=== PATIENT | female | born 1995 | race American Indian/Alaskan Native ===

== ENCOUNTER 2019-10-25 17:58 | Emergency (ER) | payer OTHER ==
[2019-10-25] MEDS ORDERED: IBUPROFEN 600 MG TAB PO ONE (19:58)
--- NOTE | 2019-10-25 19:58 | Emergency Department Report ---
Blank Doc - Documentation Documentation: 24-year-old female that presents with body aches, fever, cough, and CP with co ugh. This initial assessment/diagnostic orders/clinical plan/treatment(s) is/are subject to change based on patient's health status, clinical progression and re- assessment by fellow clinical providers in the ED. Further treatment and workup at subsequent clinical providers discretion. Patient/guardians urged not to elope from the ED as their condition may be serious if not clinically assessed a nd managed. Initial orders include: 1- Patient sent to [facility] for further evaluation and treatment 2- CXR 3- motrin-RN to repeat vitals 4- flu swab
--- NOTE | 2019-10-25 20:47 | XRay Report ---
CHEST 2 VIEWS INDICATION / CLINICAL INFORMATION: cough. COMPARISON: None available. FINDINGS: SUPPORT DEVICES: None. HEART / MEDIASTINUM: No significant abnormality. LUNGS / PLEURA: No significant pulmonary or pleural abnormality. No pneumothorax. ADDITIONAL FINDINGS: No significant additional findings. IMPRESSION: No significant abnormality. Signer Name: Musa Faustin MD FACR Signed: 10/25/2019 8:43 PM Workstation Name: [email or web address]
[2019-10-25 22:39] VITALS: BP 108/68
[2019-10-25] MEDS ORDERED: methylPREDNISolone Sod Succinate 125 MG/2 ML INJ IM ONE (23:26)
[2019-10-25] MEDS ORDERED: IPRATROPIUM/ALBUTEROL SULFATE 3 ML AMPUL.NEB IH ONE (23:26)
--- NOTE | 2019-10-26 00:35 | Emergency Department Report ---
- General Chief Complaint: Upper Respiratory Infection Stated Complaint: CHEST PAIN/SOB Time Seen by Provider: 10/25/19 19:57 Source: patient Mode of arrival: Ambulatory Limitations: No Limitations - History of Present Illness Initial Comments: Patient is a 24-year-old -[place] female with no past medical history but who smokes a pack a day cigarette presents to the ED with complaint of acute onset persistent nasal and sinus congestion, frontal sinus pressure, dry cough with wheezing and shortness of breath for the last 2 days. Patient was who complains of intermittent fever over 101F for the last 2 days with chills. Patient denies chest pain, change in vision, syncope, palpitations, Enio pain, nausea, vomiting, diarrhea, dysuria or vaginal bleeding. MD Complaint: fever, cough, sore throat, rhinorrhea, nasal congestion, sinus pain, other (dry cough with wheezing) -: Sudden, days(s) (2) Severity: moderate Severity scale (0 -10): 5 Quality: sharp, aching Consistency: constant Improves With: nothing Worsens With: nothing Context: sick contacts Associated Symptoms: denies other symptoms, fever, chills, headache, rhinorrhea, nasal congestion, cough, shortness of breath. denies: myalgias, diaphoresis, sore throat, chest pain, abdominal pain, nausea, vomiting, diarrhea, rash, right sweats Treatments Prior to Arrival: none - Related Data Home Medications Medication Instructions Recorded Confirmed Last Taken Pnv No.95/Ferrous Fum/Folic AC 1 each PO DAILY 12/24/17 12/24/17 12/23/17 10:00 [ Multivitamin Tablet] Previous Rx's Medication Instructions Recorded Last Taken Type cephALEXin [Keflex] 500 mg PO Q12HR #14 cap 12/24/17 Unknown Rx ALBUTEROL Inhaler (OR & NICU) 1 - 2 puff IH Q4H PRN #1 inh 10/26/19 Unknown Rx [ProAir HFA Inhaler] Benzonatate [Tessalon Perles] 100 mg PO Q8HR #30 capsule 10/26/19 Unknown Rx Doxycycline Hyclate [Doxycycline 100 mg PO Q12HR #20 tab 10/26/19 Unknown Rx Hyclate TAB] Ibuprofen [Motrin] 800 mg PO Q6HR PRN #24 tablet 10/26/19 Unknown Rx methylPREDNISolone [Medrol 4MG 4 mg PO DAILY #21 tab.ds.pk 10/26/19 Unknown Rx DOSEPAK (21 tabs)] Allergies Allergy/AdvReac Type Severity Reaction Status Date / Time No Known Allergies Allergy Verified 12/23/17 20:32 ED Review of Systems ROS: Stated complaint: CHEST PAIN/SOB Other details as noted in HPI Constitutional: denies: chills, fever Eyes: denies: eye pain, eye discharge, vision change ENT: congestion. denies: ear pain, throat pain Respiratory: cough, shortness of breath, wheezing Cardiovascular: denies: chest pain, palpitations Endocrine: no symptoms reported Gastrointestinal: denies: abdominal pain, nausea, diarrhea Genitourinary: denies: urgency, dysuria, discharge Musculoskeletal: denies: back pain, joint swelling, arthralgia Skin: denies: rash, lesions Neurological: denies: headache, weakness, paresthesias Psychiatric: denies: anxiety, depression Hematological/Lymphatic: denies: easy bleeding, easy bruising ED Past Medical Hx - Past Medical History Previous Medical History?: Yes Hx Hypertension: No Hx Congestive Heart Failure: No Hx Diabetes: No Hx Deep Vein Thrombosis: No Hx Renal Disease: No Hx Sickle Cell Disease: No Hx Seizures: No Hx Asthma: Yes Hx COPD: No - Surgical History Past Surgical History?: Yes Additional Surgical History: C section - Social History Smoking Status: Current Every Day Smoker Substance Use Type: None - Medications Home Medications: Home Medications Medication Instructions Recorded Confirmed Last Taken Type Pnv No.95/Ferrous Fum/Folic AC 1 each PO DAILY 12/24/17 12/24/17 12/23/17 10:00 History [ Multivitamin Tablet] cephALEXin [Keflex] 500 mg PO Q12HR #14 cap 12/24/17 Unknown Rx ALBUTEROL Inhaler (OR & NICU) 1 - 2 puff IH Q4H PRN #1 inh 10/26/19 Unknown Rx [ProAir HFA Inhaler] Benzonatate [Tessalon Perles] 100 mg PO Q8HR #30 capsule 10/26/19 Unknown Rx Doxycycline Hyclate [Doxycycline 100 mg PO Q12HR #20 tab 10/26/19 Unknown Rx Hyclate TAB] Ibuprofen [Motrin] 800 mg PO Q6HR PRN #24 tablet 10/26/19 Unknown Rx methylPREDNISolone [Medrol 4MG 4 mg PO DAILY #21 tab.ds.pk 10/26/19 Unknown Rx DOSEPAK (21 tabs)] ED Physical Exam - General Limitations: No Limitations General appearance: alert, in no apparent distress - Head Head exam: Present: atraumatic, normocephalic, normal inspection - Eye Eye exam: Present: normal appearance, PERRL, EOMI Pupils: Present: normal accommodation - ENT ENT exam: Present: normal exam, normal orophraynx, mucous membranes moist, TM's normal bilaterally, normal external ear exam, other (grossly congested nasal passages) - Neck Neck exam: Present: normal inspection, full ROM. Absent: tenderness, lymphadenopathy - Respiratory Respiratory exam: Present: wheezes (mildly diffuse coarse wheezes throughout). Absent: respiratory distress, rhonchi - Cardiovascular Cardiovascular Exam: Present: normal rhythm, tachycardia, normal heart sounds. Absent: systolic murmur, diastolic murmur, rubs, gallop - GI/Abdominal GI/Abdominal exam: Present: soft, normal bowel sounds. Absent: tenderness, guarding, rebound, hyperactive bowel sounds, hypoactive bowel sounds, organome paulina - Extremities Exam Extremities exam: Present: normal inspection, full ROM, normal capillary refill - Back Exam Back exam: Present: normal inspection, full ROM. Absent: tenderness, CVA tenderness (R), CVA tenderness (L), muscle spasm, vertebral tenderness - Neurological Exam Neurological exam: Present: alert, oriented X3, CN II-XII intact, normal gait, reflexes normal - Psychiatric Psychiatric exam: Present: normal affect, normal mood - Skin Skin exam: Present: warm, dry, intact, normal color. Absent: rash ED Course Vital Signs 10/25/19 10/25/19 10/25/19 19:56 19:58 20:01 Temperature 100.9 F H 100.9 F H Pulse Rate 110 H 109 H Respiratory 18 18 18 Rate Blood Pressure 102/63 102/63 O2 Sat by Pulse 91 100 Oximetry 10/25/19 22:37 Temperature 98.3 F Pulse Rate 94 H Respiratory 18 Rate Blood Pressure 108/68 O2 Sat by Pulse 94 Oximetry ED Medical Decision Making - Radiology Data Radiology results: report reviewed, image reviewed Chest x-ray shows no acute cardiopulmonary abnormalities or pneumonitis. - Medical Decision Making This is a 24-year-old -[place] female who presented to the ED with nasal and sinus congestion, dry cough with wheezing and shortness of breath. In the ED, patient is alert and oriented 3 and is in no acute distress but tachycardic and febrile in triage. Patient was treated for fever and also given DuoNeb treatment as well as Solu-Medrol 125 mg intramuscular injection. Chest x-ray shows no acute cardiopulmonary abnormalities or pneumonitis. On reevaluation, patient's wheezing resolved, as well as fever and tachycardia. Patient was discharged home on medications and advised to consider quitting tobacco abuse and follow-up with her primary care physician in 5-7 days for reevaluation. Patient was also advised to return to the ED immediately if symptoms get worse. - Differential Diagnosis fever and chills; URI; Bronchitis; Pneumonia; strep; Flu; pharyngitis Critical care attestation.: If time is entered above; I have spent that time in minutes in the direct care of this critically ill patient, excluding procedure time. ED Disposition Clinical Impression: Acute upper respiratory infection Acute bronchitis Qualifiers: Bronchitis organism: other organism Qualified Code(s): J20.8 - Acute bronchitis due to other specified organisms Acute frontal sinusitis Qualifiers: Recurrence: not specified as recurrent Qualified Code(s): J01.10 - Acute frontal sinusitis, unspecified Disposition: DC-01 TO HOME OR SELFCARE Is pt being admited?: No Does the pt Need Aspirin: No Condition: Stable Instructions: Acute Bronchitis (ED), Upper Respiratory Infection (ED) Additional Instructions: Take medications with food, drink plenty of fluids and follow-up with your primary care physician in 5-7 days for reevaluation. Return to the ED immediate ly if symptoms get worse. Consider quitting tobacco smoking to improve. Prescriptions: Doxycycline Hyclate [Doxycycline Hyclate TAB] 100 mg PO Q12HR #20 tab methylPREDNISolone [Medrol 4MG DOSEPAK (21 tabs)] 4 mg PO DAILY #21 tab.ds.pk Ibuprofen [Motrin] 800 mg PO Q6HR PRN #24 tablet PRN Reason: Pain , Severe (7-10) ALBUTEROL Inhaler (OR & NICU) [ProAir HFA Inhaler] 1 - 2 puff IH Q4H PRN #1 inh PRN Reason: Dyspnea Benzonatate [Tessalon Perles] 100 mg PO Q8HR #30 capsule Referrals: PRIMARY CARE, [Primary Care Provider] - 3-5 Days Time of Disposition: 00:43 Print Language: IRISH
== END 2019-10-26 00:59 | disposition home or self-care (01) ==
LOC: ED 17:58
DX: J20.8 Acute bronchitis due to other specified organisms (principal); J06.9 Acute upper respiratory infection, unspecified; J01.10 Acute frontal sinusitis, unspecified
CPT/HCPCS: 71046; 96372; 99283; J2930

== ENCOUNTER 2021-12-29 17:29 | Emergency (ER) | payer OTHER ==
[2021-12-29] MEDS ORDERED: ONDANSETRON 4 MG/2 ML INJ IV ONE (21:48)
[2021-12-29] MEDS ORDERED: FAMOTIDINE 20 MG/2 ML INJ IV ONE (21:48)
[2021-12-29] MEDS ORDERED: MORPHINE 4 MG/1 ML INJ IV ONE (21:48)
[2021-12-29 23:48] LABS: Bilirubin,Urine NEG (Negative); Blood,Urine SM (Negative); Color,Urine Yellow (Yellow); RBC,Urine < 1.0 /HPF (0.0-6.0); Urobilinogen,Urine < 2.0 mg/dL (<2.0)
[2021-12-29 23:51] LABS: Basophils % (Auto) 0.4 % (0.0-1.8); Eosinophils # (Auto) 0.3 K/mm3 (0.0-0.4); Eosinophils % (Auto) 1.9 % (0.0-4.3); Hematocrit 35.2 % (30.3-42.9); Hemoglobin 10.8 gm/dl (10.1-14.3); Lymphocytes # (Auto) 2.4 K/mm3 (1.2-5.4); Lymphocytes % (Auto) 18.3 % (13.4-35.0); Mean Corpuscular HGB Conc 31 % (30-34); Mean Corpuscular Volume 76 fl (79-97); Monocytes # (Auto) 0.9 K/mm3 (0.0-0.8); Monocytes % (Auto) 7.1 % (0.0-7.3); Platelet Count 393 K/mm3 (140-440); Red Blood Count 4.62 M/mm3 (3.65-5.03); Red Cell Distribution Width 16.8 % (13.2-15.2)
[2021-12-30 00:07] LABS: Alanine Aminotransferase 12 units/L (7-56); Albumin 4.1 g/dL (3.9-5); Blood Urea Nitrogen 10 mg/dL (7-17); Calcium 9.1 mg/dL (8.4-10.2); Hemolysis Index 0
[2021-12-30 00:09] LABS: BUN/Creatinine Ratio 17
[2021-12-30] MEDS ORDERED: cefTRIAXone/NS 1 GM/50 ML 1 GM/50 ML BAG IV ONE (00:23)
[2021-12-30] MEDS ORDERED: ONDANSETRON 4 MG/2 ML INJ IV ONE (02:30)
[2021-12-30] MEDS ORDERED: KETOROLAC 30 MG/1 ML INJ IV ONE (02:30)
--- NOTE | 2021-12-30 02:30 | Emergency Department Report ---
ED Abdominal Pain HPI - General Chief Complaint: Abdominal Pain Stated Complaint: AB PAIN Source: patient Mode of arrival: Ambulatory Limitations: No Limitations - History of Present Illness Initial Comments: Patient is a 26-year-old -Citizen [place] female with a history of asthma presents to the ED with complaint of acute onset persistent diffuse lower abdominal pain that radiates to the bilateral flanks with nausea and vomiting, urinary frequency and urgency and dysuria for the last 1 week. Patient states that the pain is especially worsened in the last 2 days and has not been able to keep anything down in the last 12 hours. Patient denies dizziness, syncope, fever, chills, diarrhea, vaginal bleeding, vaginal discharge, dyspareunia, low back pain, headache, chest pain or shortness of breath or change in vision and cough. MD Complaint: abdominal pain (lower), flank pain (bilateral) -: Sudden, week(s) (1) Location: suprapubic, bilateral flank Radiation: suprapubic, bilateral flank Migration to: no migration Severity scale (0 -10): 10 Quality: cramping, aching, sharp Consistency: constant Improves With: nothing Worsens With: nothing Associated Symptoms: denies other symptoms, nausea, vomiting, dysuria, anorexia. denies: diarrhea, fever, chills, hematemesis, hematochezia, melena, syncope Treatments Prior to Arrival: NSAIDs - Related Data LMP Date: 12/07/21 Home Medications Medication Instructions Recorded Confirmed Last Taken Pnv No.95/Ferrous Fum/Folic AC 1 each PO DAILY 12/24/17 12/24/17 12/23/17 10:00 [ Multivitamin Tablet] Previous Rx's Medication Instructions Recorded Last Taken Type cephALEXin [Keflex] 500 mg PO Q12HR #14 cap 12/24/17 Unknown Rx Albuterol Mdi (or & Nicu Only) 1 - 2 puff IH Q4H PRN #1 inh 10/26/19 Unknown Rx [ProAir HFA Inhaler] Benzonatate [Tessalon Perles] 100 mg PO Q8HR #30 capsule 10/26/19 Unknown Rx Doxycycline Hyclate [Doxycycline 100 mg PO Q12HR #20 tab 10/26/19 Unknown Rx Hyclate TAB] Ibuprofen [Motrin] 800 mg PO Q6HR PRN #24 tablet 10/26/19 Unknown Rx methylPREDNISolone [Medrol 4MG 4 mg PO DAILY #21 tab.ds.pk 10/26/19 Unknown Rx DOSEPAK (21 tabs)] Ibuprofen [Motrin] 800 mg PO Q8HR PRN #30 tablet 12/30/21 Unknown Rx Ondansetron [Zofran Odt] 4 mg PO Q6HR PRN #20 tab.rapdis 12/30/21 Unknown Rx Sulfamethoxazole/Trimethoprim 1 each PO Q12H #20 tab 12/30/21 Unknown Rx [Bactrim DS TAB] traMADoL [Ultram] 50 mg PO Q6HR PRN #12 tablet 12/30/21 Unknown Rx Allergies Allergy/AdvReac Type Severity Reaction Status Date / Time No Known Allergies Allergy Verified 12/29/21 17:46 ED Review of Systems ROS: Stated complaint: AB PAIN Other details as noted in HPI Constitutional: denies: chills, fever Eyes: denies: eye pain, eye discharge, vision change ENT: denies: ear pain, throat pain Respiratory: denies: cough, shortness of breath, wheezing Cardiovascular: denies: chest pain, palpitations Endocrine: no symptoms reported Gastrointestinal: abdominal pain (lower abdomen), nausea, vomiting, other (bilateral flank pains). denies: diarrhea Genitourinary: denies: urgency, dysuria, discharge Musculoskeletal: denies: back pain, joint swelling, arthralgia Skin: denies: rash, lesions Neurological: denies: headache, weakness, paresthesias Psychiatric: denies: anxiety, depression Hematological/Lymphatic: denies: easy bleeding, easy bruising ED Past Medical Hx - Past Medical History Hx Hypertension: No Hx Congestive Heart Failure: No Hx Diabetes: No Hx Deep Vein Thrombosis: No Hx Renal Disease: No Hx Sickle Cell Disease: No Hx Seizures: No Hx Asthma: Yes Hx COPD: No - Surgical History Additional Surgical History: C section - Social History Smoking Status: Current Every Day Smoker Substance Use Type: None - Medications Home Medications: Home Medications Medication Instructions Recorded Confirmed Last Taken Type Pnv No.95/Ferrous Fum/Folic AC 1 each PO DAILY 12/24/17 12/24/17 12/23/17 10:00 History [ Multivitamin Tablet] cephALEXin [Keflex] 500 mg PO Q12HR #14 cap 12/24/17 Unknown Rx Albuterol Mdi (or & Nicu Only) 1 - 2 puff IH Q4H PRN #1 inh 10/26/19 Unknown Rx [ProAir HFA Inhaler] Benzonatate [Tessalon Perles] 100 mg PO Q8HR #30 capsule 10/26/19 Unknown Rx Doxycycline Hyclate [Doxycycline 100 mg PO Q12HR #20 tab 10/26/19 Unknown Rx Hyclate TAB] Ibuprofen [Motrin] 800 mg PO Q6HR PRN #24 tablet 10/26/19 Unknown Rx methylPREDNISolone [Medrol 4MG 4 mg PO DAILY #21 tab.ds.pk 10/26/19 Unknown Rx DOSEPAK (21 tabs)] Ibuprofen [Motrin] 800 mg PO Q8HR PRN #30 tablet 12/30/21 Unknown Rx Ondansetron [Zofran Odt] 4 mg PO Q6HR PRN #20 tab.rapdis 12/30/21 Unknown Rx Sulfamethoxazole/Trimethoprim 1 each PO Q12H #20 tab 12/30/21 Unknown Rx [Bactrim DS TAB] traMADoL [Ultram] 50 mg PO Q6HR PRN #12 tablet 12/30/21 Unknown Rx ED Physical Exam - General Limitations: No Limitations General appearance: alert, in no apparent distress - Head Head exam: Present: atraumatic, normocephalic, normal inspection - Eye Eye exam: Present: normal appearance, PERRL, EOMI Pupils: Present: normal accommodation - ENT ENT exam: Present: normal exam, normal orophraynx, mucous membranes moist, TM's normal bilaterally, normal external ear exam - Neck Neck exam: Present: normal inspection, full ROM - Respiratory Respiratory exam: Present: normal lung sounds bilaterally. Absent: respiratory distress, wheezes, rales, rhonchi, chest wall tenderness, accessory muscle use, decreased breath sounds, prolonged expiratory - Cardiovascular Cardiovascular Exam: Present: regular rate, normal rhythm, normal heart sounds. Absent: systolic murmur, diastolic murmur, rubs, gallop - GI/Abdominal GI/Abdominal exam: Present: soft, tenderness (Palpable diffuse low abdominal tenderness, palpable bilateral CVA tenderness and flank tenderness), normal bowel sounds. Absent: guarding, rebound, hyperactive bowel sounds, hypoactive bowel sounds, organomegaly, mass, pulsatile mass - Extremities Exam Extremities exam: Present: normal inspection, full ROM, normal capillary refill - Back Exam Back exam: Present: normal inspection, full ROM, CVA tenderness (R), CVA tenderness (L). Absent: tenderness, muscle spasm, paraspinal tenderness, vertebral tenderness - Neurological Exam Neurological exam: Present: alert, oriented X3, CN II-XII intact, normal gait, reflexes normal - Psychiatric Psychiatric exam: Present: normal affect, normal mood - Skin Skin exam: Present: warm, dry, intact, normal color. Absent: rash ED Course Vital Signs 12/29/21 12/29/21 17:50 22:05 Temperature 98.2 F Pulse Rate 95 H Respiratory 20 16 Rate Blood Pressure 137/62 O2 Sat by Pulse 96 Oximetry ED Medical Decision Making - Lab Data Result diagrams: 12/29/21 21:57 12/29/21 21:57 - Radiology Data Radiology results: report reviewed, image reviewed The abdomen pelvis CT scan with IV contrast showed findings compatible with right-sided pyelonephritis. It also showed minimal free fluid within the pelvis thought to be physiological, PID not excluded. There are also small physiologic ovarian cysts. Appendix showed no significant abnormalities. - Medical Decision Making This is a 26-year-old -Citizen [place] female with a history of asthma presents to the ED with complaint of acute onset persistent diffuse lower abdominal pain that radiates to the bilateral flanks with nausea and vomiting, urinary frequency and urgency and dysuria for the last 1 week. Patient states that the pain is especially worsened in the last 2 days and has not been able to keep anything down in the last 12 hours. In the ED, patient is alert and oriented x3 and is not in distress. Patient however appears to be in significant pain. Patient was treated for pain in the ED and also received normal saline 1 L IV bolus x1. Patient was also treated for nausea and vomiting in the ED. Lab test results were reviewed and showed acute leukocytosis of 13,100, and urinalysis showed significant urinary tract infection. Abdomen pelvis CT scan with IV contrast showed findings compatible with right-sided pyelonephritis and minimal free fluid within the pelvis thought to be physiologic. Patient also received Rocephin 1 g IV x1 in the ED. On reevaluation, patient's pain is well controlled medication. Patient passed oral fluid challenge in the ED after being treated with antiemetics. Patient was discharged home on antibiotics and pain medications as well as antiemetics and was advised to follow-up with [facility] physician or primary care physician in 7 to 10 days for reevaluation return to the ED immediately if symptoms get worse. - Differential Diagnosis PID; pyelonephritis; ; ovarian cyst; appendicitis; kidney stone; Critical care attestation.: If time is entered above; I have spent that time in minutes in the direct care of this critically ill patient, excluding procedure time. ED Disposition Clinical Impression: Abdominal pain in female patient, Pyelonephritis of right kidney, Nausea and vomiting in adult patient, Acute urinary tract infection Disposition: HOME / SELF CARE / HOMELESS Is pt being admited?: No Does the pt Need Aspirin: No Condition: Stable Instructions: Abdominal Pain (ED), Abdominal Pain, Adult, [id number], Pyelonephritis, Adult, [id number], Nausea and Vomiting, Adult, [id number], Urinary Tract Infection, Adult, [id number] Additional Instructions: All lab test results were reviewed and are all nonactionable except for ur inalysis that showed significant urinary tract infection. Abdomen pelvis CT scan with contrast showed right-sided pyelonephritis which is a kidney infection. Therefore take medications with food, drink plenty of fluids and follow-up with your [facility] physician or primary care physician in 7 to 10 days for reevaluation. Return to the ED immediately if symptoms get worse. Prescriptions: Sulfamethoxazole/Trimethoprim [Bactrim DS TAB] 1 each PO Q12H #20 tab Ibuprofen [Motrin] 800 mg PO Q8HR PRN #30 tablet PRN Reason: Pain , Severe (7-10) traMADoL [Ultram] 50 mg PO Q6HR PRN #12 tablet PRN Reason: Pain Ondansetron [Zofran Odt] 4 mg PO Q6HR PRN #20 tab.rapdis PRN Reason: Nausea Referrals: LENNY GRANADO MD [Staff Physician] - 7-10 days Forms: Work/School Release Form(ED) Time of Disposition: 02:31 Print Language: UZBEK
[2021-12-30 03:06] VITALS: BP 117/54
== END 2021-12-30 03:15 | disposition home or self-care (01) ==
LOC: ED 17:29
DX: R10.84 Generalized abdominal pain (principal); N12 Tubulo-interstitial nephritis, not specified as acute or chronic; R11.2 Nausea with vomiting, unspecified; N39.0 Urinary tract infection, site not specified; J45.909 Unspecified asthma, uncomplicated; Z98.890 Other specified postprocedural states; F17.200 Nicotine dependence, unspecified, uncomplicated
CPT/HCPCS: 36415; 74177; 80053; 81001; 83690; 84703; 85025; 96365; 96375; 99284; J0696; J1885; J2270; J2405; J3490; Q9967

== ENCOUNTER 2022-03-06 17:08 | Emergency (ER) | payer OTHER ==
[2022-03-06 17:59] VITALS: BP 134/65
[2022-03-06 18:20] LABS: Bilirubin,Urine NEG (Negative); Blood,Urine NEG (Negative); Color,Urine Yellow (Yellow); Mucus,Urine FEW /HPF; Protein,Urine <15 mg/dL mg/dL (Negative); RBC,Urine < 1.0 /HPF (0.0-6.0)
== END 2022-03-06 21:50 | disposition left against medical advice (07) ==
LOC: ED 17:08
DX: R10.2 Pelvic and perineal pain (principal); Z53.21 Procedure and treatment not carried out due to patient leaving prior to being seen by health care provider
CPT/HCPCS: 81001